=== PATIENT | female | born 1960 | race Caucasian/White ===

== ENCOUNTER 2023-06-22 08:02 | Outpatient (CLI) | payer OTHER, SELFPAY ==
[2023-06-22 09:31] LABS: Estmated Average Glucose 105; Hemoglobin A1C 5.3 % (4.0-6.0)
[2023-06-22 09:53] LABS: Alanine Aminotransferase 14 U/L (0-33); Albumin Level 4.2 g/dL (3.5-5.2); Anion Gap 12.9 (5-19); Aspartate Amino Transferase 17 U/L (0-32); Blood Urea Nitrogen 11 mg/dL (8-23); Calcium 8.6 mg/dL (8.5-10.5); Carbon Dioxide 28 mmol/L (22-29); Chloride 102 mmol/L (98-107); Chol HDL Ratio 3.58 mg/dL (0.0-4.40); Cholesterol 179 mg/dL (0-200); Globulin 3.1 g/dL (1.3-4.6); Glomerular Filtration Rate 63.7 mL/min (90-130); Glucose 93 mg/dL (65-115); HDL Cholesterol 50 mg/dL (60-100); LDL Cholesterol Calculated 96 mg/dL (50-129); Osmolality Calculated 287 mOsm/kg (285-295); Potassium 3.9 mmol/L (3.5-5.1); Sodium 139 mmol/L (136-145); Total Bilirubin 0.6 mg/dL (0.15-1.2); Total Protein 7.3 g/dL (6.6-8.7); Triglycerides 165 mg/dL (0-150)
[2023-06-22 09:54] LABS: 25 Hydroxy Vitamin D 27 ng/mL (30-100); Alkaline Phosphatase 100 U/L (35-105); LDL HDL Ratio 1.92 RATIO (0.00-3.22); Thyroid Stimulating Hormone 0.35 uIU/mL (0.27-4.20)
[2023-06-22 10:18] LABS: Free T4 Free Thyroxine 1.53 ng/dL (0.82-1.77)
== END 2023-06-22 08:03 | disposition home or self-care (01) ==
LOC: LAB 08:17
PROVIDERS: Visit Provider Internal Medicine
DX: E03.9 Hypothyroidism, unspecified (principal); R73.03 Prediabetes; I10 Essential (primary) hypertension; E53.8 Deficiency of other specified B group vitamins
CPT/HCPCS: 36415; 80053; 80061; 82306; 83036; 84439; 84443